=== PATIENT | male | born 1955 | race Two or more races ===

== ENCOUNTER 2017-02-17 11:08 | Emergency (ER) | payer SELFPAY ==
[~2017-02-17] VITALS: Ht 175.3 cm; Wt 90.7 kg
[~2017-02-17 11:08] MED LIST: AMLO5TAB2 PO
--- NOTE | 2017-02-17 11:27 | NUR ---
URINE COLLECTED AND SENT TO LAB.
--- NOTE | 2017-02-17 11:38 | NUR ---
DR BAILEY AT THE BEDSIDE FOR EVAL AND EXAM.
[2017-02-17] MEDS ORDERED: KETOROLAC TROMETHAMINE 15 MG INJ IV ONE (12:00)
[2017-02-17 12:03] LABS: *BILIRUBIN,URIN NEGATIVE (NEGATIVE); *BLOOD, URINE Trace-intact (NEGATIVE); *CLARITY,URINE CLEAR (CLEAR); *COLOR,URINE YELLOW (YELLOW); *KETONES,URINE NEGATIVE (NEGATIVE); *PROTEIN,URINE NEGATIVE (NEGATIVE); *UROBILINOGEN,URINE 0.2 E.U./dl (NORMAL); LEUKOCYTE ESTERASE ,URINE NEGATIVE (NEGATIVE); NITRITE, URINE NEGATIVE (NEGATIVE); PH,URINE 6.5 (5.0-8.0); UGLUCOSE NEGATIVE (NEGATIVE)
[2017-02-17 12:04] LABS: BACTERIA,URINE NONE SEEN /HPF (NONE SEEN); SQUAMOUS EPITHELIAL CELL,UR NONE SEEN /HPF (NONE SEEN); WBC,URINE 0-3 /HPF (0-3)
[2017-02-17 12:08] LABS: BASOPHILS % (AUTO) 0.5 % (0.0-2.0); EOSINOPHILS # (AUTO) 0.3 K/uL (0.0-0.7); HEMATOCRIT 43.5 % (40-50); HEMOGLOBIN 14.9 G/DL (14.0-18.0); LYMPHOCYTES # (AUTO) 1.6 K/UL (0.8-4.8); MEAN CORPUSCULAR HEMOGLOBIN 28.6 UUG (27.0-31.0); MEAN CORPUSCULAR HGB CONC 34 g/dL (32.0-37.0); MEAN CORPUSCULAR VOLUME 83.3 FL (82.0-92.0); MONOCYTES # (AUTO) 0.6 K/UL (0.1-1.30); MONOCYTES % (AUTO) 6.2 % (0.0-11.0); NEUTROPHILS # (AUTO) 7.4 K/UL (1.8-8.9); NEUTROPHILS % (AUTO) 74.3 % (38.5-71.5); PLATELET COUNT (AUTO) 253 K/UL (150-450); RED BLOOD CELL COUNT(AUTO) 5.22 MIL/UL (4.7-6.1); WHITE BLOOD COUNT (AUTO) 9.9 K/UL (4.0-11.2)
[2017-02-17] MEDS ORDERED: KETOROLAC TROMETHAMINE 15 MG INJ ONE (12:12)
[2017-02-17 12:21] LABS: POTASSIUM 4.2 mmol/L (3.5-5.1)
[2017-02-17 12:27] LABS: BILIRUBIN,DIRECT 0.1 mg/dL (0.0-0.2); BILIRUBIN,TOTAL 0.5 mg/dL (0.2-1.0); TOTAL PROTEIN, SERUM 7.5 g/dL (6.4-8.2)
--- NOTE | 2017-02-17 12:39 | NUR ---
PT BACK FROM CT. SITTING IN BED TALKING ON PHONE. NO C/O PAIN, N/V.
--- NOTE | 2017-02-17 13:15 | NUR ---
DR BAILEY SPOKE WITH PATIENT MADE AWARE OF TEST RESULTS.
[2017-02-17 13:20] VITALS: BP 135/88
--- NOTE | 2017-02-17 13:29 | NUR ---
Patient discharged to home in stable conditon. Written and verbal after care instructions given. Patient verbalizes understanding of instructions.
== END 2017-02-17 13:35 | disposition home or self-care (01) ==
LOC: ER 11:12
DX: N28.89 Other specified disorders of kidney and ureter (principal); R10.9 Unspecified abdominal pain; I10 Essential (primary) hypertension; F10.20 Alcohol dependence, uncomplicated; Z88.0 Allergy status to penicillin
CPT/HCPCS: 36415; 71010; 74176; 80048; 80076; 81001; 83690; 84484; 85025; 85730; 93005; 96374; 99285; A4663; J1885; 70030-TC